=== PATIENT | male | born 1955 | race Caucasian/White ===

== ENCOUNTER → 2019-01-03 | Outpatient (CLI) | payer OTHER ==
--- NOTE | 2019-01-03 12:13 | PCVCIMAG ---
APPROVED REPORT Study performed: 01/03/2019 09:31:23 Exam: Stress Echocardiogram Indication: CAD , Hypertension, Hyperlipidemia, Ischemic Cardiomyopathy Patient Location: Echo lab Stress Nurse: Leilani Zambrano RN Room #: 2 Status: routine Ht: 5 ft 10 in HR: 70 bpm BP: 128/70 mmHg Rhythm: NSR Procedure The patient underwent an Exercise Stress Test using the Afshin Protocol. Blood pressure, heart rate, and EKG were monitored. An Echocardiogram was performed by data acquisition technician in four stages in quad fashion. At peak stress, four selected images were obtained and placed side by side with resting images for comparison. Stress Test Details Stress Test: Exercise stress testing was performed using a Afshin protocol. HR Resting HR: 66 bpmMax Heart Rate (APMHR): 156 bpm Max HR Achieved: 141 bpmTarget HR (85% APMHR): 132 bpm % of APMHR: 90 Recovery HR: 85 bpm HR response to stress: Normal HR response to stress BP Resting BP: 128/70 mmHg Max BP: 180/76 mmHg Recovery BP: 156/76 mmHg BP response to stress: Normal blood pressure response to stress. ECG Resting ECG: Sinus Rhythm Stress ECG: Sinus Rhythm Arrhythmia: PVC's Recovery ECG: Sinus Rhythm Recovery Arrhythmia: PVC's Clinical Reason for Termination: Maximal effort, Dyspnea, Knee pain Exercise duration: 6 min 30 sec Highest Stage Achieved: Stage 3: 3.4 mph at 14% grade. Exercise capacity: 8.50 METs Overall Exercise Capacity for Age: Average Stress ECG Conclusion ECG: Non-ischemic Clinical: Non-ischemic Pre-Stress Echo The resting Echocardiogram showed normal left ventricular contractility with an estimated Ejection Fraction of about >55%. Fixed inferior wall hypokinesis. Post-Stress Echo The stress Echocardiogram showed normal left ventricular contractility with an estimated Ejection Fraction of about 60-65%. Fixed inferior wall hypokinesis. No new wall motion abnormalities. Clinical No clinical or ECG evidence for ischemia. Conclusion Clinical Response: Non-ischemic Exercise Capacity: Average Stress ECG Response: Non-ischemic Stress Echo Images: Non-ischemic Normal stress echocardiogram with maximal exercise stress. Fixed inferior wall hypokinesis. No new wall motion abnormalities. Normal doppler. No regurgitation or stenosis of the mitral, tricuspid, aortic, and pulmonic valves. Other Information Study Quality: Adequate <Conclusion> Normal stress echocardiogram with maximal exercise stress. Fixed inferior wall hypokinesis. No new wall motion abnormalities. Normal doppler. No regurgitation or stenosis of the mitral, tricuspid, aortic, and pulmonic valves.
== END | disposition home or self-care (01) ==
LOC: PCVCIMAG 09:14
PROVIDERS: ATTEND Internal Medicine Cardiovascular Disease
DX: I25.10 Atherosclerotic heart disease of native coronary artery without angina pectoris (principal); I10 Essential (primary) hypertension; E78.5 Hyperlipidemia, unspecified; I25.5 Ischemic cardiomyopathy
CPT/HCPCS: 93325; 93351